=== PATIENT | male | born 1985 | race Two or more races ===

== ENCOUNTER 2025-01-28 07:00 | Day surgery (SDC) | payer OTHER ==
[2025-01-21 12:48] VITALS: BP 144/88
[~2025-01-28] VITALS: Ht 167.6 cm; Wt 98.9 kg
[~2025-01-28 07:00] MED LIST: BUPIVACAINE HCL/MPF 0.5% 30ML VIAL ONE; CEFAZOLIN SODIUM 1,000 MG VIAL ONE; LIDOCAINE HCL 1% 20 ML VIAL IJ ONE; LIDOCAINE HCL 1%/EPINEPHRINE 20ML VIAL IJ ONE; SODIUM BICARBONATE 1 MEQ/ML DISP.SYRIN 50ML IV ONE
== END 2025-01-28 09:25 | disposition home or self-care (01) ==
LOC: CIR.AMB 07:00
PROVIDERS: ATTEND Surgery Surgery of the Hand
DX: M67.843 Other specified disorders of tendon, right hand (principal)